=== PATIENT | female | born 1990 | race Caucasian/White ===

== ENCOUNTER → 2024-02-12 07:28 | Outpatient (REF) | payer OTHER, SELFPAY | LOC: PNTC 07:28 | PROVIDERS: ATTENDING PHYSICIAN Obstetrics & Gynecology | DX: Z36.0 Encounter for antenatal screening for chromosomal anomalies (principal); Z36.82 Encounter for antenatal screening for nuchal translucency | CPT/HCPCS: 76801; 76813 ==

== ENCOUNTER → 2024-03-10 15:40 | Outpatient (REF) | payer OTHER, SELFPAY | LOC: PNTC 15:40 | PROVIDERS: ATTENDING PHYSICIAN Obstetrics & Gynecology | DX: O99.212 Obesity complicating pregnancy, second trimester (principal); Z87.51 Personal history of pre-term labor; O09.519 Supervision of elderly primigravida, unspecified trimester | CPT/HCPCS: 76805 ==

== ENCOUNTER → 2024-04-07 13:43 | Outpatient (REF) | payer OTHER, SELFPAY | LOC: PNTC 13:43 | PROVIDERS: ATTENDING PHYSICIAN Obstetrics & Gynecology | DX: O09.529 Supervision of elderly multigravida, unspecified trimester (principal); O99.210 Obesity complicating pregnancy, unspecified trimester; O09.219 Supervision of pregnancy with history of pre-term labor, unspecified trimester | CPT/HCPCS: 76811; 76817 ==

== ENCOUNTER → 2024-04-22 14:48 | Outpatient (REF) | payer OTHER, SELFPAY | LOC: PNTC 14:48 | PROVIDERS: ATTENDING PHYSICIAN Obstetrics & Gynecology | DX: O09.519 Supervision of elderly primigravida, unspecified trimester (principal); O99.210 Obesity complicating pregnancy, unspecified trimester; Z87.51 Personal history of pre-term labor | CPT/HCPCS: 76805; 76817 ==

== ENCOUNTER → 2024-06-02 15:36 | Outpatient (REF) | payer OTHER, SELFPAY | LOC: PNTC 15:36 | PROVIDERS: ATTENDING PHYSICIAN Obstetrics & Gynecology | DX: O09.519 Supervision of elderly primigravida, unspecified trimester (principal) | CPT/HCPCS: 76816 ==

== ENCOUNTER → 2024-07-07 11:35 | Outpatient (REF) | payer OTHER, SELFPAY | LOC: PNTC 11:35 | PROVIDERS: ATTENDING PHYSICIAN Obstetrics & Gynecology | DX: O09.519 Supervision of elderly primigravida, unspecified trimester (principal) | CPT/HCPCS: 76816 ==

== ENCOUNTER 2024-08-24 19:16 | Inpatient (IN) | payer OTHER, SELFPAY ==
[2024-08-24 19:28] VITALS: BMI 34.5
[2024-08-24 19:59] VITALS: BP 127/72
[2024-08-24 20:43] LABS: % Basophils 0.5 % (0-2); % Eosinophils 0.5 % (0-6); % Immature Granulocytes 0.5 % (0-0.5); % Lymphocytes 21.6 % (20.5-51.1); % Monocytes 8.2 % (1.7-9.3); % Neutrophils 68.7 % (42.2-75.2); Absolute Basophils 0.1 10^3/uL (0-0.2); Absolute Eosinophils 0.1 10^3/uL (0-0.7); Absolute Immature Granulocytes 0.1 10^3/uL (0-0.05); Absolute Monocytes 0.8 10^3/uL (0.1-0.6); Absolute Neutrophils 6.3 10^3/uL (1.4-6.5); Hematocrit 33.5 % (37.0-47.0); Mean Corp Hgb Conc. 32.8 g/dL (33.0-37.0); Mean Corpuscular Hgb 26.8 pg (27.0-31.0); Mean Corpuscular Volume 81.7 fL (81.0-99.0); Mean Platelet Volume 11.1 fL (7.4-10.4); Nucleated Red Blood Cells % 0 %; Platelet Count 265 10^3/uL (130-400); Red Cell Dist. Width 14.4 % (11.5-14.5); White Blood Cell Count 9.1 10^3/uL (4.8-10.8)
[2024-08-24] MEDS: CYTOTEC 25 MICROGRAM VAG (20:46)
[2024-08-25] MEDS: STADOL 1 MG IV (00:35)
[2024-08-25] MEDS: PENICILLIN 110 UNITS IV (01:16)
[2024-08-25] MEDS: FENTANYL/BUPIVACAINE 100 EPIDURAL (01:43)
[2024-08-25] MEDS: SUBLIMAZE 100 MCG EPIDURAL (01:43)
[2024-08-25] MEDS: LR 1000 IV (02:17)
[2024-08-25] MEDS: PITOCIN 30 UNITS/NSS 500 ML IV (04:30)
[2024-08-25] MEDS: PRENATAL PLUS 1 TABLET PO (07:30)
[2024-08-25] MEDS: PROZAC 20 MG PO (07:30)
[2024-08-25] MEDS: TYLENOL 650 MG PO ×3 (10:44→22:13)
[2024-08-25] MEDS: MOTRIN 600 MG PO ×2 (10:45→18:11)
[2024-08-26 05:03] LABS: Hematocrit 30.2 % (37.0-47.0); Hemoglobin 9.5 g/dL (12.0-16.0)
[2024-08-26] MEDS: PROZAC 20 MG PO (09:44)
[2024-08-26] MEDS: SENOKOT-S 1 TABLET PO (09:44)
[2024-08-26] MEDS: FEOSOL 325 MG PO (09:44)
[2024-08-26] MEDS: PRENATAL PLUS 1 TABLET PO (09:45)
[2024-08-26] MEDS: TYLENOL 650 MG PO ×2 (09:45→16:53)
[2024-08-26] MEDS: MOTRIN 600 MG PO ×2 (09:45→16:53)
[2024-08-27] MEDS: PRENATAL PLUS 1 TABLET PO (07:35)
[2024-08-27] MEDS: PROZAC 20 MG PO (07:35)
[2024-08-27] MEDS: FEOSOL 325 MG PO (07:35)
[2024-08-27] MEDS: TYLENOL 650 MG PO (07:36)
[2024-08-27] MEDS: MOTRIN 600 MG PO (07:36)
[2024-08-27 12:22] LABS: Syphilis/T. pallidum Ab Reflex Negative (Negative)
== END 2024-08-27 12:39 | disposition home or self-care (01) | DRG 806 ==
LOC: LDRP 19:16
PROVIDERS: ADMITTING PHYSICIAN Student in an Organized Health Care Education/Training Program
PROC: 3E0P7VZ Introduction of Hormone into Female Reproductive, Via Natural or Artificial Opening (ICD-10-PCS; 2024-08-24)
PROC: 10D17Z9 Manual Extraction of Products of Conception, Retained, Via Natural or Artificial Opening (ICD-10-PCS; 2024-08-25)
PROC: 10907ZC Drainage of Amniotic Fluid, Therapeutic from Products of Conception, Via Natural or Artificial Opening (ICD-10-PCS; 2024-08-25)
PROC: 10E0XZZ Delivery of Products of Conception, External Approach (ICD-10-PCS; 2024-08-25)
PROC: 0KQM0ZZ Repair Perineum Muscle, Open Approach (ICD-10-PCS; 2024-08-25)
DX: O48.0 Post-term pregnancy (principal); O98.32 Other infections with a predominantly sexual mode of transmission complicating childbirth; Z37.0 Single live birth; Z3A.40 40 weeks gestation of pregnancy; O70.1 Second degree perineal laceration during delivery; O69.81X0 Labor and delivery complicated by cord around neck, without compression, not applicable or unspecified; O99.02 Anemia complicating childbirth; D64.9 Anemia, unspecified; O99.344 Other mental disorders complicating childbirth; F41.9 Anxiety disorder, unspecified; O99.824 Streptococcus B carrier state complicating childbirth; A63.0 Anogenital (venereal) warts; O76 Abnormality in fetal heart rate and rhythm complicating labor and delivery; O73.0 Retained placenta without hemorrhage
CPT/HCPCS: 88307; 36415; 85014; 85018; 85025; 86780; 86850; 86900; 86901